=== PATIENT | female | born 1950 | race Caucasian/White ===

== ENCOUNTER 2017-02-05 17:00 | Emergency (ER) | payer MEDICARE, OTHER ==
[~2017-02-05] VITALS: Ht 157.5 cm; Wt 43.5 kg
[~2017-02-05 17:00] MED LIST: ASCO500 PO; CLAR10TA7 PO; DUONI NEB; FISH1000 PO; FLOV250A INH; MAGN200T2 PO; MONT10TA2 PO; MUCI600T PO; NACCAP PO; PRED10PA PO; PROB1TAB PO; SYMB160A INH; TAB-TAB PO; TURM450C PO
[2017-02-05 17:02] VITALS: BP 127/60; PULSE 95; RESP 14; O2SAT 95
[2017-02-05 18:18] VITALS: BP 167/87; PULSE 91; RESP 18; O2SAT 100
[2017-02-05] MEDS ORDERED: CYCLOPENTOLATE HCL 1% OPHT SOLN 2 ML BTL LEFT EYE ONE (18:45)
--- NOTE | 2017-02-05 18:52 | PD ---
HPI Chief Complaint: Eye Problems/Injury Time Seen by Provider: 18:51 Travel History International Travel<30 days: No Contact w/Intl Traveler<30days: No Traveled to known affect area: No History of Present Illness HPI This 66-year-old female who reports a history of vitreous hemorrhage in her right eye the . She presents for evaluation of left eye floaters, flashes of light in her vision. Symptoms started today at 4 PM. She is concerned that she may have a retinal detachment or injuries hemorrhage. She reports a history of bilateral facial lens replacement 7 years ago. She denies any ocular pain, blurred vision, headache, slurred speech, nausea, vomiting, weakness. She has no other complaints at this time. [facility] Past Medical History Asthma: Yes Diabetes: No Diverticulitis: Yes (DIVERTICULOSIS) Pneumonia: Yes Ulcer: Yes (PEPTIC ULCER 06/2013) Tetanus Vaccination: > 5 Years Influenza Vaccination: No ?: Not Tubal Ligation: Yes (1978) Past Surgical History Eye Surgery: Yes (ARTIFICIAL LENSES) Hysterectomy: Yes (TOTAL HYSTERECTOMY) Social History Alcohol Use: Yes (OCC WINE) Tobacco Use: No (SMALL AMOUNT IN COLLEGE) Substance Use: No Allergies-Medications (Allergen,Severity, Reaction): Coded Allergies: azithromycin (Unverified Allergy, Severe, Ulcers, 02/05/17) latex (Unverified Allergy, Severe, RASH, 02/05/17) penicillin G (Unverified Allergy, Severe, HIVES, 02/05/17) Reported Meds & Prescriptions Reported Meds & Active Scripts Active Review of Systems Eyes: Positive: Other (positive for flashes and floaters. ), No: Blurred Vision, Photophobia, Pain HENT: No: Headaches, Vertigo Neurologic: No: Weakness, Dizziness, Syncope, Headache Physical Exam Narrative GENERAL: Well-nourished female in no acute distress SKIN: Warm and dry. HEAD: Atraumatic. Normocephalic. EYES: Pupils equal and round reactive to light extraocular muscles are intact. No scleral icterus. No injection or drainage. ENT: No nasal bleeding or discharge. Mucous membranes pink and moist. NECK: Trachea midline. No JVD. CARDIOVASCULAR: Regular rate and rhythm. No murmur appreciated. RESPIRATORY: No accessory muscle use. Clear to auscultation. Breath sounds equal bilaterally. GASTROINTESTINAL: Abdomen soft, non-tender, nondistended. Hepatic and splenic margins not palpable. MUSCULOSKELETAL: No obvious deformities. No clubbing. No cyanosis. No edema. NEUROLOGICAL: Awake and alert. No obvious cranial nerve deficits. Motor grossly within normal limits. Normal speech. PSYCHIATRIC: Appropriate mood and affect; insight and judgment normal. Data Data Last Documented VS Vital Signs Date Time Temp Pulse Resp B/P (MAP) Pulse Ox O2 Delivery O2 Flow Rate FiO2 02/05/17 19:39 72 16 134/64 (87) 99 Room Air Orders Orders Cyclopentolate 1% Opth Soln (Cyclogyl 1% (02/05/17 18:45) Consult Ophthalmology (02/05/17 ) [facility] Medical Decision Making Medical Screen Exam Complete: Yes Emergency Medical Condition: Yes Medical Record Reviewed: Yes Differential Diagnosis Vitreous hemorrhage, retinal detachment, ocular migraine Narrative Course An ophthalmic ultrasound was performed by Dr. Sequeira revealing no evidence of retinal detachment. I discussed the case with the patient's retinal specialist Dr. Hartley who would like the patient's eye to be dilated and he will come and evaluate her at bedside. 2049: The patient was examined by Dr. Hartley who will be following up with her tomorrow in the office for what appears to be a vitreous hemorrhage with a retinal break. She is stable for discharge. Diagnosis Primary Impression: Retinal break of left eye Additional Impression: Vitreous hemorrhage of left eye Referrals: Paramjit Hartley MD Additional Instructions: Follow-up with Dr. Hartley tomorrow as scheduled. Return for any emergent medical conditions. Med/Other Pt SpecificInfo: No Change to Meds Disposition: 01 DISCHARGE HOME Condition: Stable Octavio Robles Feb 05, 2017 18:52
[2017-02-05 19:39] VITALS: BP 134/64; PULSE 72; RESP 16; O2SAT 99
== END 2017-02-05 22:11 | disposition home or self-care (01) ==
LOC: NEPC 17:00
DX: H33.302 Unspecified retinal break, left eye (principal)
CPT/HCPCS: 99283